=== PATIENT | male | born 1950 | race Caucasian/White ===

== ENCOUNTER 2024-08-06 06:01 | Day surgery (SDC) | payer OTHER ==
[2024-07-31 08:03] LABS: HEMATOCRIT 43.7 % (39.0-48.0); MEAN CELL VOLUME 86.3 fL (80.0-100.00); MEAN CORPUSCULAR HEMOGLOBIN 29.6 pg (27.00-32.0); MEAN CORPUSCULAR HGB CONC 34.3 g/dl (32.0-36.0); PLATELET COUNT 232 K/uL (150-450); RED BLOOD COUNT 5.07 M/uL (4.00-6.00); RED CELL DISTRIBUTION WIDTH 15.1 % (11.5-14.5)
[2024-07-31 08:06] LABS: URINE APPEARANCE Clear; URINE BILIRRUBIN Negative (NEGATIVE); URINE BLOOD Negative; URINE COLOR Yellow; URINE GLUCOSE Negative (NEGATIVE); URINE KETONE Negative (NEGATIVE); URINE LEUKOCYTE Negative; URINE NITRATE Negative; URINE PROTEIN Negative (NEGATIVE)
[2024-07-31 08:23] VITALS: BP 104/65
[2024-07-31 08:29] LABS: INR 1.1; PARTIAL THROMBOPLASTIN TIME 28.1 SECONDS (22.0-34.0); PROTHROMBIN TIME 11.9 SECONDS (9.0-11.5)
[2024-07-31 08:44] LABS: ALBUMIN 3.8 gm/dL (3.4-5.0); BILIRUBIN TOTAL 1.07 mg/dL (0.3-1.2); CALCIUM 9.6 mg/dL (8.5-10.1); CREATININE SERUM 0.94 mg/dL (0.70-1.30); GFR 78.89; GLOBULINA 3.7 G/DL (2.4-3.5); POTASSIUM 3.86 mEq/L (3.5-5.1); TOTAL PROTEIN 7.5 gm/dL (6.4-8.2)
[2024-07-31 09:12] LABS: URINE BACTERIA 3.6 uL (0.0-1933); URINE EPITHELIAL CELLS 0.6 uL (0.0-38.8); URINE RBC 1.6 uL (0.0-20.8)
[~2024-08-06] VITALS: Ht 172.7 cm; Wt 101.2 kg
[~2024-08-06 06:01] MED LIST: ALEVE220 M1 PO; CARDIZEM CD240 MG PO; CATAPRES0.2 MG PO; CEFADROXIL500 MG PO; HYZAAR 100/25 T1 TAB PO; PERCOCET 5/3251 TAB PO
[2024-08-06] MEDS ORDERED: CEFAZOLIN SODIUM 1,000 MG VIAL IV ONE (12:30)
[2024-08-06] MEDS ORDERED: MORPHINE SULFATE 4 MG/ML VIAL IV ONE ×2 (15:40→16:15)
== END 2024-08-06 18:00 | disposition home or self-care (01) ==
LOC: CIR.AMB 06:01
PROVIDERS: ATTEND Surgery
DX: K43.0 Incisional hernia with obstruction, without gangrene (principal); K43.6 Other and unspecified ventral hernia with obstruction, without gangrene; I10 Essential (primary) hypertension; E11.9 Type 2 diabetes mellitus without complications
CPT/HCPCS: 49594; C1781

== ENCOUNTER 2024-08-10 16:43 | Inpatient (IN) | payer OTHER ==
[~2024-08-10] VITALS: Ht 172.7 cm; Wt 100.7 kg
[2024-08-10] MEDS ORDERED: CATAPRES0.3 MG (16:54)
--- NOTE | 2024-08-10 16:54 | NUR ---
PTE ALERTA Y ORIENTADA X3, SE KAYLIN S/V. PTE LLEGA A ER EN AMBULANCIA Y REFIERE QUE EL LUNES LO OPERARON DE ROOPA HERNIA EN EL ABDOMEN. PTE REFIERE QUE PRESENTA DOLOR ABDOMINAL. SE UBICA EN JUNAID AREA DE OBSERVACION.
[2024-08-10 18:10] LABS: HEMATOCRIT 45.5 % (39.0-48.0); HEMOGLOBIN 15.5 g/dL (13-16.00); MEAN CELL VOLUME 86.7 fL (80.0-100.00); MEAN CORPUSCULAR HEMOGLOBIN 29.6 pg (27.00-32.0); MEAN CORPUSCULAR HGB CONC 34.1 g/dl (32.0-36.0); PLATELET COUNT 274 K/uL (150-450); RED BLOOD COUNT 5.25 M/uL (4.00-6.00); RED CELL DISTRIBUTION WIDTH 14.9 % (11.5-14.5)
[2024-08-10 18:39] LABS: INR 1.1; PARTIAL THROMBOPLASTIN TIME 25.5 SECONDS (22.0-34.0); PROTHROMBIN TIME 11.9 SECONDS (9.0-11.5)
--- NOTE | 2024-08-10 18:39 | NUR ---
SE EJECUTSN ORDENES MEDICAS EN LIVE TOTALIDAD
[2024-08-10 18:41] LABS: ALBUMIN 3.8 gm/dL (3.4-5.0); BILIRUBIN TOTAL 0.59 mg/dL (0.3-1.2); CALCIUM 9.9 mg/dL (8.5-10.1); CREATININE SERUM 0.98 mg/dL (0.70-1.30); GFR 75.18; GLOBULINA 4.6 G/DL (2.4-3.5); POTASSIUM 4.01 mEq/L (3.5-5.1); TOTAL PROTEIN 8.4 gm/dL (6.4-8.2)
[2024-08-10] MEDS ORDERED: KETOROLAC TROMETHAMINE 30 MG VIAL IU ONE (19:15)
[2024-08-10 19:52] LABS: PH,URINE 5.5 (5.0-8.0); URINE APPEARANCE Clear; URINE BILIRRUBIN Negative (NEGATIVE); URINE BLOOD Negative; URINE COLOR Yellow; URINE GLUCOSE Negative (NEGATIVE); URINE KETONE Negative (NEGATIVE); URINE LEUKOCYTE Negative; URINE NITRATE Negative; URINE PROTEIN Trace (NEGATIVE)
[2024-08-10 19:56] LABS: URINE BACTERIA 19.5 uL (0.0-1933); URINE EPITHELIAL CELLS 16.6 uL (0.0-38.8); URINE RBC 11.6 uL (0.0-20.8); URINE WBC 17.5 uL (0.0-23.2)
[2024-08-10 20:20] LABS: URINE CAST 0.73 uL (0.0-1.40); URINE MUCUS SCANT
[2024-08-10] MEDS ORDERED: PIPERACILLIN/TAZOBACTAM SODIUM 3.375 GM VIAL IV ONE (23:45)
[2024-08-10] MEDS ORDERED: 0.9 % SODIUM CHLORIDE 1,000 ML IV ONE (23:45)
[2024-08-10] MEDS ORDERED: FAMOtidine 10 MG/ML (4ML VIAL) IV ONE (23:45)
--- NOTE | 2024-08-10 23:45 | NUR ---
SE RECIBE PTE ALERTA Y ORIENTADO X3 EN JUNAID #7, CANALIZADO X2 EN BRAZO DERECHO CON ANGIOS #22 Y #20, PATENTES Y EN H/L. AL MOMENTO PTE SE ENCUENTRA CONSULTADO CON DR. PRACHI SOUTH. SE MIDEN SV Y SE MANTIENE BAJO OBSERVACION POR CAMBIOS EN [place].
[2024-08-11] MEDS ORDERED: MORPHINE SULFATE 2 MG/ML SYRINGE IV SCH
--- NOTE | 2024-08-11 08:30 | NUR ---
PTE ALERTA Y ORIENTADO X3. EL MISMO CON LIVE CANALIZACION PATENTE BAJANDO CON DRU IVFS DE MANTENIMIENTO. NGT PATENTE Y CONECTADO A SUCCION INTERMITENTE DRENANDO SECRECIONES COLOR MATT RALPH. CONSULTA CON IM Y CIRUGIA
[2024-08-11] MEDS ORDERED: FAMOtidine 10 MG/ML (4ML VIAL) IV SCH (16:15)
[2024-08-11] MEDS ORDERED: PIPERACILLIN/TAZOBACTAM SODIUM 3.375 GM VIAL IV SCH (18:00)
[2024-08-11] MEDS ORDERED: DEXTROSE 50 % IN WATER 0.5 G/ML DISP.SYRIN IV PRN (18:15)
[2024-08-11] MEDS ORDERED: KETOROLAC TROMETHAMINE 30 MG VIAL IV PRN (18:15)
[2024-08-11] MEDS ORDERED: ACETAMINOPHEN 500 MG GEL..CAP PO PRN (18:15)
[2024-08-11] MEDS ORDERED: INSULIN LISPRO 1,000 UNIT/10 ML UNITS SUBCUTANEO PRN (18:15)
[2024-08-11] MEDS ORDERED: 0.9 % SODIUM CHLORIDE 1,000 ML IV SCH (18:15)
[2024-08-11] MEDS ORDERED: hydrALAZINE HCL 20 MG VIAL IV PRN (18:30)
[2024-08-11 22:39] VITALS: BP 160/81; O2SAT 97
[2024-08-12 01:46] VITALS: BP 129/66; O2SAT 95
[2024-08-12 07:48] LABS: HEMATOCRIT 46.7 % (39.0-48.0); HEMOGLOBIN 15.9 g/dL (13-16.00); MEAN CELL VOLUME 87.6 fL (80.0-100.00); MEAN CORPUSCULAR HEMOGLOBIN 29.9 pg (27.00-32.0); MEAN CORPUSCULAR HGB CONC 34.1 g/dl (32.0-36.0); PLATELET COUNT 283 K/uL (150-450); RED BLOOD COUNT 5.33 M/uL (4.00-6.00); RED CELL DISTRIBUTION WIDTH 14.8 % (11.5-14.5)
[2024-08-12 07:55] LABS: ALBUMIN 3.4 gm/dL (3.4-5.0); BILIRUBIN TOTAL 0.87 mg/dL (0.3-1.2); CREATININE SERUM 1.02 mg/dL (0.70-1.30); GFR 71.79; GLOBULINA 3.8 G/DL (2.4-3.5); MAGNESIUM 2.2 mg/dL (1.8-2.4); POTASSIUM 4.22 mEq/L (3.5-5.1); TOTAL PROTEIN 7.2 gm/dL (6.4-8.2)
[2024-08-12 07:59] LABS: ERYTHROCYTE SEDIMENTATION RATE 38 mm/hr
[2024-08-12 08:08] LABS: C-REACTIVE PROTEIN 10.1 MG/DL (0.00-0.29)
[2024-08-12] MEDS ORDERED: LOSARTAN/HYDROCHLOROTHIAZIDE 1 TAB TABLET PO SCH (09:00)
[2024-08-12] MEDS ORDERED: ENOXAPARIN SODIUM 30 MG/0.3 ML SYRINGE SUBCUTANEO SCH (09:00)
[2024-08-12] MEDS ORDERED: cloNIDine HCL 0.2 MG TABLET PO SCH (09:00)
[2024-08-12 09:19] VITALS: BP 158/75
[2024-08-12] MEDS ORDERED: SIMVASTATIN 40 MG TABLET PO SCH (17:00)
[2024-08-12 17:38] VITALS: BP 160/78; O2SAT 98
[2024-08-12] MEDS ORDERED: KETOROLAC TROMETHAMINE 30 MG VIAL IV PRN (23:00)
[2024-08-13 00:57] VITALS: BP 170/76; O2SAT 93
[2024-08-13 04:11] VITALS: BP 145/70
[2024-08-13 10:50] VITALS: BP 146/72
[2024-08-13 16:24] VITALS: BP 165/80
[2024-08-14 01:31] VITALS: BP 156/76; O2SAT 97
[2024-08-14 08:50] VITALS: BP 157/76; O2SAT 95
[2024-08-14] MEDS ORDERED: ENOXAPARIN SODIUM 40 MG/0.4 ML SYRINGE SUBCUTANEO SCH (09:00)
[2024-08-14] MEDS ORDERED: FAMOTIDINE/PF 20 MG/2 ML VIAL IV SCH (09:00)
[2024-08-14 17:56] VITALS: BP 160/83; O2SAT 92
[2024-08-15 02:48] VITALS: BP 147/81; O2SAT 95
[2024-08-15] MEDS ORDERED: DIATRIZOATE MEGLUMINE, SODIUM 30 ML BOTTLE PO NR (06:00)
[2024-08-15 06:12] LABS: HEMATOCRIT 44.8 % (39.0-48.0); MEAN CELL VOLUME 88.1 fL (80.0-100.00); MEAN CORPUSCULAR HEMOGLOBIN 29.6 pg (27.00-32.0); MEAN CORPUSCULAR HGB CONC 33.6 g/dl (32.0-36.0); PLATELET COUNT 299 K/uL (150-450); RED BLOOD COUNT 5.08 M/uL (4.00-6.00); RED CELL DISTRIBUTION WIDTH 14.9 % (11.5-14.5)
[2024-08-15 06:41] LABS: ALBUMIN 3.2 gm/dL (3.4-5.0); BILIRUBIN TOTAL 0.74 mg/dL (0.3-1.2); CALCIUM 8.9 mg/dL (8.5-10.1); CREATININE SERUM 0.9 mg/dL (0.70-1.30); GFR 82.95; GLOBULINA 3.5 G/DL (2.4-3.5); TOTAL PROTEIN 6.7 gm/dL (6.4-8.2)
[2024-08-15 10:18] VITALS: BP 167/85; O2SAT 98
[2024-08-15] MEDS ORDERED: fentaNYL CITRATE 50 MCG/ML AMPUL IV PUSH ONE ×2 (17:00)
[2024-08-15] MEDS ORDERED: MIDAZOLAM HCL 2 MG/2 ML VIAL IV PUSH ONE ×2 (17:00)
[2024-08-15 18:35] VITALS: BP 154/82
[2024-08-15] MEDS ORDERED: FAMOTIDINE/PF 20 MG/2 ML VIAL IV PUSH SCH (21:30)
[2024-08-16 01:55] VITALS: BP 160/76; O2SAT 97
[2024-08-16 08:16] VITALS: BP 163/83
[2024-08-16 17:18] VITALS: BP 166/84
[2024-08-17 02:07] VITALS: BP 160/81; O2SAT 98
[2024-08-17 08:04] VITALS: BP 172/87
[2024-08-17 10:10] LABS: HEMATOCRIT 44.6 % (39.0-48.0); MEAN CELL VOLUME 87.3 fL (80.0-100.00); MEAN CORPUSCULAR HEMOGLOBIN 29.5 pg (27.00-32.0); MEAN CORPUSCULAR HGB CONC 33.8 g/dl (32.0-36.0); PLATELET COUNT 291 K/uL (150-450); RED CELL DISTRIBUTION WIDTH 15.1 % (11.5-14.5)
[2024-08-17 11:06] LABS: CALCIUM 8.8 mg/dL (8.5-10.1); CREATININE SERUM 0.82 mg/dL (0.70-1.30); GFR 92.35; POTASSIUM 4.18 mEq/L (3.5-5.1)
[2024-08-17] MEDS ORDERED: SODIUM CHLORIDE 0.45 % 1,000 ML IV SCH (14:30)
[2024-08-17 17:36] VITALS: BP 168/87; O2SAT 96
[2024-08-18 02:36] VITALS: BP 154/80; O2SAT 96
[2024-08-18 10:02] VITALS: BP 150/80; O2SAT 98
[2024-08-18 14:40] LABS: CALCIUM 9.1 mg/dL (8.5-10.1); CREATININE SERUM 0.76 mg/dL (0.70-1.30); GFR 100.82; POTASSIUM 3.88 mEq/L (3.5-5.1)
[2024-08-18 18:44] VITALS: BP 174/72
[2024-08-19 02:33] VITALS: BP 160/80; O2SAT 96
[2024-08-19 10:01] VITALS: BP 141/82; O2SAT 98
[2024-08-19 20:09] VITALS: BP 142/76; O2SAT 97
[2024-08-20 01:40] VITALS: BP 155/78
[2024-08-20 09:41] VITALS: BP 154/70
[2024-08-20 17:45] VITALS: BP 150/80; O2SAT 96
[2024-08-20 22:26] VITALS: BP 116/64; O2SAT 95
[2024-08-21 01:35] VITALS: BP 116/64
[2024-08-21 08:33] VITALS: BP 132/75; O2SAT 95
[2024-08-21 18:24] VITALS: BP 100/66; O2SAT 97
[2024-08-22 01:18] VITALS: BP 115/68
[2024-08-22 08:52] VITALS: BP 134/80
== END 2024-08-22 10:32 | disposition home or self-care (01) | DRG 389 ==
LOC: ER 16:43 → MEDJ 08-11 18:11
PROVIDERS: General Practice; Student in an Organized Health Care Education/Training Program; ADMIT Internal Medicine; ATTEND Internal Medicine
PROC: 0D9670Z Drainage of Stomach with Drainage Device, Via Natural or Artificial Opening (ICD-10-PCS; principal; 2024-08-10)
PROC: BW21YZZ Computerized Tomography (CT Scan) of Abdomen and Pelvis using Other Contrast (ICD-10-PCS; 2024-08-10)
PROC: BB24ZZZ Computerized Tomography (CT Scan) of Bilateral Lungs (ICD-10-PCS; 2024-08-14)
PROC: 02HV33Z Insertion of Infusion Device into Superior Vena Cava, Percutaneous Approach (ICD-10-PCS; 2024-08-14)
PROC: 0BBG3ZX Excision of Left Upper Lung Lobe, Percutaneous Approach, Diagnostic (ICD-10-PCS; 2024-08-15)
PROC: BW21YZZ Computerized Tomography (CT Scan) of Abdomen and Pelvis using Other Contrast (ICD-10-PCS; 2024-08-15)
DX: K91.30 Postprocedural intestinal obstruction, unspecified as to partial versus complete (principal); C78.02 Secondary malignant neoplasm of left lung; L76.34 Postprocedural seroma of skin and subcutaneous tissue following other procedure; R59.0 Localized enlarged lymph nodes; K59.00 Constipation, unspecified; E11.9 Type 2 diabetes mellitus without complications; I10 Essential (primary) hypertension; F17.210 Nicotine dependence, cigarettes, uncomplicated; E78.5 Hyperlipidemia, unspecified; Y83.8 Other surgical procedures as the cause of abnormal reaction of the patient, or of later complication, without mention of misadventure at the time of the procedure; Z98.62 Peripheral vascular angioplasty status